=== PATIENT | female | born 1970 | race Caucasian/White ===

== ENCOUNTER 2018-08-15 10:12 | Emergency (ER) | payer SELFPAY ==
[2018-08-15 10:13] VITALS: BP 124/88; PULSE 92; RESP 18; TEMP 36.2; O2SAT 97; BMI 35.1
--- NOTE | 2018-08-15 10:31 | CT_ITS ---
STUDY: CT ABDOMEN AND PELVIS WITH CONTRAST REASON FOR EXAM: Female, 48 years old. Diffuse abdominal pain RADIATION DOSAGE (If Supplied By Facility): CTDIvol = ( 15.41 ) mGy, DLP = ( 1268.82 ) mGycm TECHNIQUE: Transaxial images were obtained from the dome of the diaphragm to the symphysis pubis with oral contrast. 100 ml of Isovue 300 contrast was administered. Sagittal and coronal images were reconstructed. Individualized dose optimization techniques were used for this CT. COMPARISON: None. FINDINGS: The visualized lung bases are clear. The visualized portions of the heart and pericardium are within normal limits. The patient is status post cholecystectomy. The liver is within normal limits. There are no suspicious hepatic lesions. The spleen is normal in size. The pancreas is within normal limits. The adrenal glands are within normal limits. There are no renal or ureteral stones. There is no hydronephrosis. There are no focal renal lesions. Normal visualized stomach. There is no bowel obstruction or inflammation. The appendix is visualized and appears normal. The aorta is normal in caliber. There is no abdominal or pelvic free air, free fluid, fluid collection or lymphadenopathy. There are no destructive osseous lesions. CT/Abdomen/Pelvis WITH Contrast IMPRESSION: No acute abdominal or pelvic pathology. Electronically Signed: Gustavo Partida, at 12:57 EST Tel , Service support ,
[2018-08-15] MEDS: 0.9% Normal Saline 1,000 ML 999 ML IV ×2 (10:50)
[2018-08-15] MEDS: proMETHazine 25 MG/ML Syringe 12.5 MG IV (10:50)
[2018-08-15 11:03] LABS: Absolute Neutrophil Count 4.4 X10^3/uL (2.0-7.7); Basophil# 0.01 X10^3/uL; Basophil% 0.2 % (0-1); Eosinophil# 0.04 X10^3/uL; Eosinophils% 0.6 % (0-5); Hematocrit 40.6 % (37-47); Lymphocyte % 21.6 % (19-41); Mean Corp Hgb Conc 34.5 g/gl (32-36); Mean Corpuscular Hgb 31.9 pg (27.0-32.0); Mean Corpuscular Volume 92.5 fL (81-99); Monocyte# 0.65 X10^3/uL; Neutrophil # 4.36 X10^3/uL (2.7-7.7); Neutrophil % 67.3 % (47-70); POSITIVE COUNT NO; POSITIVE DIFFERENTIAL NO; POSITIVE MORPHOLOGY NO; Platelet Count 234 K/mm3 (150-450); RBC Distribution Width CV 12.5 % (11.6-14.6); RBC Distribution Width SD 41.9 fl (35.1-43.9); Red Blood Count 4.39 M/mm3 (4.2-5.4); White Blood Count 6.5 K/mm3 (4.4-11.0)
[2018-08-15 11:24] LABS: ALB/GLOB Ratio 0.9 RATIO (0.9-2.4); AST(SGOT) 36 U/L (15-37); Alanine Aminotransfer ALT/SGPT 41 U/L (13-56); Albumin, Serum 3.6 g/dL (3.2-5.0); Alkaline Phosphatase 76 U/L (45-117); Anion Gap 8 (5-15); BUN 17 mg/dL (7-18); Calcium,Total 8.4 mg/dL (8.5-10.1); Chloride 107 mmol/L (98-107); Creatinine, Serum 0.85 mg/dL (0.55-1.02); EST Glomerular Filtration Rate 76 mL/min (>60); Est Glom Filt Rate - Afr Amer 92 mL/min (>60); Estimated Creatinine Clearance 72.04 ml/min; Glucose 96 mg/dL (74-106); Lipase 117 U/L (73-393); Potassium 3.6 mmol/L (3.5-5.1); Protein, Total 7.6 g/dL (6.4-8.2); Sodium Level 138 mmol/L (136-145)
[2018-08-15 12:32] VITALS: BP 132/76; PULSE 69; RESP 14; O2SAT 100
[2018-08-15 12:57] LABS: Bacteria 0 SEEN /hpf (None Seen); Mucous, Urine 0 SEEN /hpf (<or=2+); Red Blood Cells-Urine 0 SEEN /hpf (0-5); White Blood Cells 0 SEEN /hpf (0-5)
[2018-08-15 12:58] VITALS: BP 136/77; PULSE 66; RESP 14; O2SAT 100
[2018-08-15 13:26] LABS: Color, Urine Yellow (Yellow); Glucose, Dipstick Normal (Normal); Ketone-Dipstick Negative (Negative); Leukocyte Esterase-Dipstick Negative /ul (Negative); Nitrite-Dipstick Negative (Negative); Occult Blood-Urine 25 /ul (Negative); Protein-Dipstick Negative (Negative); Urine Bilirubin Dipstick Negative (Negative); Urine Clarity Clear (Clear); Urine Urobilinogen Normal (Normal); Urine pH 6.5 (5.0 - 8.0)
[2018-08-15 13:40] LABS: Squamous Epithelial Cells - UA 0-5 SEEN /hpf (5-10)
--- NOTE | 2018-08-15 14:07 | ED.DCSUM_ITS ---
- ER Visit Summary Date of Service: 08/15/18 Chief Complaint: Nausea and vomiting History of Present Illness: The patient is a 48 F who presents with 1 week of nausea. Symptoms began on Friday with a headache and nausea. Headache is improved. Friday through today she has had a lot of vomiting. She also notes some diarrhea. She notes her urine is dark. She states that she is severely nauseated. Physical Examination: Afebrile vital signs are stable Gen: Well-nourished well-developed Head: Normocephalic atraumatic Eyes: Perrl EOMI ENT: TMs clear no rhinorrhea moist mucous membranes Neck: Supple no lymphadenopathy no JVD nontender CVS: Regular rate rhythm no murmurs normal S1-S2 Respiratory: No distress clear to auscultation bilaterally chest nontender Abdomen: Soft mild tenderness to palpation. Without guarding or rebound nondistended normal bowel sounds no masses Back: Nontender Extremity: Nontender no edema Skin: Normal color no rash Neuro: alert orientated ?3 CN II-XII intact normal strength sensation reflexes gait cerebellar Psych: Normal affect normal mood Test Results: CBC CMP lipase normal urinalysis normal CT the abdomen pelvis showed no acute findings Emergency Department Course and Treatment: Patient received IV fluids and Phenergan and her symptoms are improved. I will prescribe some Phenergan instruct her on rest follow-up with primary care return if worsening or concerns Impression: 1. Gastroenteritis This note was generated with [employer] dictation software. It may contain incorrect words, spelling, and punctuation that were not noted in review of the chart prior to signing ED Disposition - Plan for ED Patient: Disposition: Home or Assisted Living Chief Complaint: Abd Pain Instructions: ED Gastroenteritis Viral Prescriptions: proMETHazine tablet [Phenergan] 25 mg PO Q6H PRN PRN #15 tab PRN Reason: Nausea Referrals: Amilcar Tyler MD [Primary Care Provider] - 1 Week if not improving
[2018-08-15 14:11] VITALS: BP 131/76; PULSE 60; RESP 14
== END 2018-08-15 14:22 | disposition home or self-care (01) ==
PROVIDERS: Emergency Provider Emergency Medicine; Family Provider Family Medicine; PCP Family Medicine
DX: K52.9 Noninfective gastroenteritis and colitis, unspecified (principal); I10 Essential (primary) hypertension; G40.909 Epilepsy, unspecified, not intractable, without status epilepticus; F32.9 Major depressive disorder, single episode, unspecified; Z90.49 Acquired absence of other specified parts of digestive tract; Z79.899 Other long term (current) drug therapy; Z72.0 Tobacco use
CPT/HCPCS: 74177; 80053; 81001; 83690; 85025; 96361; 96374; 99283; J7030; Q9967

== ENCOUNTER 2018-09-23 18:05 | Emergency (ER) | payer SELFPAY ==
[2018-09-23 18:07] VITALS: BP 174/102; PULSE 100; RESP 18; TEMP 36.5; O2SAT 96; BMI 37.5
--- NOTE | 2018-09-23 18:36 | RAD_ITS ---
STUDY: X-RAY - RIGHT WRIST REASON FOR EXAM: Female, 48 years old. Pain status post fall. TECHNIQUE: 3 view(s) of the wrist were obtained. COMPARISON: None. FINDINGS: Normal visualized distal radius and ulna. Normal radiocarpal articulation. Normal distal radioulnar articulation. Normal carpal bones. Normal carpal articulations. Normal carpometacarpal articulation of the thumb. Normal second through fifth carpometacarpal articulations. Anchors are noted in the first metacarpal head. Otherwise unremarkable metacarpal bones. The soft tissue structures are unremarkable. RAD/Wrist min 3 Views IMPRESSION: Normal x-ray examination of the wrist. Electronically Signed: Sadie Quezada MD at 19:51 EST Tel , Service support ,
--- NOTE | 2018-09-23 18:36 | RAD_ITS ---
STUDY: X-RAY - RIGHT RADIUS AND ULNA REASON FOR EXAM: Female, 48 years old. Fell and injured right radius and ulna TECHNIQUE: 2 view(s) of the forearm. COMPARISON: None. FINDINGS: There is no demonstrated soft tissue swelling. Comminuted impacted fracture radial head and neck. Normal visualized ulna. RAD/Forearm 2 Views IMPRESSION: Fracture radial head and neck Electronically Signed: Ryan Cote MD at 19:37 EST , Service support ,
--- NOTE | 2018-09-23 18:36 | RAD_ITS ---
STUDY: X-RAY - RIGHT ELBOW REASON FOR EXAM: Female, 48 years old. Fell and injured right elbow TECHNIQUE: 3 view(s) of the elbow. COMPARISON: None. FINDINGS: Comminuted impacted fracture radial head involving 30% of the articular surface. Normal visualized humerus, and ulna. Normal radiocapitellar and ulnotrochlear articulations. The soft tissue structures are unremarkable. Anterior and posterior fat pad sign. RAD/Elbow min 3 Views IMPRESSION: Comminuted impacted radial head fracture and hemarthrosis as above Electronically Signed: Ryan Cote MD at 19:35 EST , Service support ,
--- NOTE | 2018-09-23 18:36 | RAD_ITS ---
STUDY: X-RAY - RIGHT HUMERUS REASON FOR EXAM: Female, 48 years old. Fell and injured right arm TECHNIQUE: 2 view(s) of the humerus. COMPARISON: None. FINDINGS: Normal visualized humerus. There is no demonstrated fracture or osseous destructive process. There is no demonstrated soft tissue abnormality. RAD/Humerus min 2 Views IMPRESSION: Normal x-ray examination of the humerus. Electronically Signed: Ryan Cote MD at 19:33 EST , Service support ,
--- NOTE | 2018-09-23 18:36 | RAD_ITS ---
STUDY: X-RAY - RIGHT SHOULDER REASON FOR EXAM: Female, 48 years old. Fell and injured right shoulder TECHNIQUE: 2 view(s) of the shoulder. COMPARISON: August 19, 2017 FINDINGS: Normal glenohumeral articulation. Normal acromioclavicular joint. Normal acromion. Normal humeral head and visualized proximal humerus. The soft tissue structures are unremarkable. Normal visualized pulmonary apex. RAD/Shoulder min 2 Views IMPRESSION: Normal x-ray examination of the shoulder. Electronically Signed: Ryan Cote MD at 19:18 EST , Service support ,
--- NOTE | 2018-09-23 18:36 | RAD_ITS ---
STUDY: X-RAY - RIGHT HAND REASON FOR EXAM: Female, 48 years old. Fell and injured right hand TECHNIQUE: 3 view(s) of the hand. COMPARISON: None. FINDINGS: 2 metallic anchors in the head of the first metacarpal. Normal radiocarpal articulation. Normal distal radioulnar joint. Normal visualized carpal bones. Normal carpal articulations Normal carpometacarpal articulation of the thumb. Normal second through fifth carpometacarpal joints. Normal metacarpi. Normal metacarpophalangeal joint of the thumb. Normal interphalangeal joint of the thumb. Normal proximal and distal phalanges of the thumb. Normal metacarpophalangeal joints of the second through fifth fingers. Normal proximal and distal interphalangeal joints of the second through fifth fingers. Normal phalanges of the second through fifth fingers. The soft tissue structures are unremarkable. IMPRESSION: Postop changes as above otherwise Normal x-ray examination of the hand. Electronically Signed: Ryan Cote MD at 19:40 EST , Service support , RAD/Hand Min 3 Views
[2018-09-23] MEDS: HYDROmorphone 1 MG/ML Syringe IM (18:42)
--- NOTE | 2018-09-23 20:02 | ED.DCSUM_ITS ---
- ER Visit Summary Date of Service: 09/23/18 Chief Complaint: Right arm injury History of Present Illness: The patient is a 48 F presenting for evaluation secondary to a right arm injury. Patient suffered a mechanical fall where she tripped over a toy box and struck her right arm forcibly. She is reporting pain from her shoulder all the way down to her hand. She denies hitting her head or loss of consciousness. She denies any other injuries. She is not on any sort of anticoagulants. Physical Examination: Primary survey: Airway is patent, breath sounds equal bilateral, central peripheral pulses 2+ and symmetric, GCS 15 out of 15. Vitals within normal limits. Secondary survey: General: Well-nourished well-developed no acute distress Head: Normocephalic atraumatic Eyes: PERRLA, EOMI ENT: Atraumatic Neck: Nontender full range of motion, no step-offs noted Heart: Regular rate and rhythm no murmurs Lungs: Respirations nondistressed, lung sounds clear to auscultation bilaterally, chest nontender, normal chest excursion bilaterally Abdomen: Soft nontender nondistended normal bowel sounds no palpable abdominal masses Back: Nontender no step-offs noted Extremities: Exquisitely tender right upper extremity without localization from the shoulder all the way down to the hand. Normal pulses, normal distal sensation. Limited range of motion secondary to pain. Skin: Normal color no trauma Neuro: Alert and oriented ?4, GCS 15 out of 15, no lateralizing neurological deficits. Test Results: X-rays of the elbow, shoulder, humerus, forearm, wrist, and hand show only evidence of a Kennedy 3 radial head fracture with comminution and impaction Emergency Department Course and Treatment: Patient presented secondary to a fall with an arm injury. Primary and secondary surveys showed only injuries to the right arm. X-rays were obtained which showed a comminuted radial head fracture. Patient was placed in a splint that was fabricated by the ED physician. This was a long-arm with ulnar gutter. There is good capillary refill following splint placement. Patient's pain was treated with Dilaudid and oxycodone in the emergency department. She will be discharged with a course of Percocet. Patient requested follow-up with the [facility] orthopedics. Disposition: Discharge Impression: 1. Right comminuted displaced radial head fracture 2. Long-arm splint fabricated by ED physician This note was generated with [employer] dictation software. It may contain incorrect words, spelling, and punctuation that were not noted in review of the chart prior to signing ED Disposition - Plan for ED Patient: Disposition: Home or Assisted Living Diagnosis: Radial head fracture, closed Instructions: ED Fx Radial Head Prescriptions: Oxycodone HCl/Acetaminophen [Percocet 5/325] 1 tab PO Q6H PRN PRN 5 Days #20 tab PRN Reason: Pain Referrals: Nikolas Crook MD [STAFF PHYSICIAN] - As soon as possible
[2018-09-23] MEDS: oxyCODONE 5 MG Tablet 10 MG PO (20:04)
[2018-09-23 20:06] VITALS: BP 160/94; PULSE 81; RESP 18; O2SAT 97
== END 2018-09-23 20:29 | disposition home or self-care (01) ==
PROVIDERS: Emergency Provider Emergency Medicine; Family Provider Family Medicine; PCP Family Medicine
DX: S52.121A Displaced fracture of head of right radius, initial encounter for closed fracture (principal); W18.09XA Striking against other object with subsequent fall, initial encounter; Y93.9 Activity, unspecified; Y92.9 Unspecified place or not applicable; G40.909 Epilepsy, unspecified, not intractable, without status epilepticus; Z79.899 Other long term (current) drug therapy
CPT/HCPCS: 29105; 29405; 73030; 73060; 73080; 73090; 73110; 73130; 96372; 99283

== ENCOUNTER 2020-10-28 08:37 | Emergency (ER) | payer SELFPAY ==
[2020-10-28 08:38] VITALS: BP 146/91; PULSE 91; RESP 17; TEMP 36.8; O2SAT 100; BMI 35.7
--- NOTE | 2020-10-28 09:07 | ED.VIS.GEN ---
History of Present Illness Chief Complaint: Abd Pain Informant: Patient Narrative: 50-year-old female presenting with epigastric and right upper quadrant pain. Patient states that started this morning. Last meal was last night at about 6 PM. Patient states that she has sharp pain in this area. She has history of cholecystectomy. She has not had fever, chills. She has associated nausea without vomiting. She denies any constipation or diarrhea. - Past Medical History (1) Seizure disorder Status: Chronic Past Medical History - Allergies and Home Meds Allergies/Adverse Reactions: Allergies lactose Allergy (Verified 10/28/20 08:38) Upset Stomach morphine Adverse Reaction (Verified 10/28/20 08:38) NUMBNESS Primary Care Physician: Amilcar Tyler MD [Primary Care Provider] - Prior records reviewed: Yes Surgical History: cholecystectomy Smoking Status: Current every day smoker - Family History Paternal Family History: Reports: No pertinent history Review of Systems General: Denies: Chills, Fever, Sweats ENT: Denies: Rhinorrhea, Sore throat Cardiovascular: Denies: Chest pain, Palpitations Respiratory: Reports: Dyspnea Gastrointestinal: Reports: Abdominal pain, Nausea. Denies: Vomiting, Diarrhea, Constipation, Melena Genitourinary: Denies: Dysuria Musculoskeletal: Denies: Myalgias, Arthralgias Skin: Denies: Rash, Abscess, Abrasions Neurological: Denies: Headache, Weakness, Parasthesia, Numbness Psych: Denies: Depression, Anxiety Physical Exam Vital Signs/Narrative: Vital Signs Temp Pulse Resp BP Pulse Ox 10/28/20 08:38 98.2 F 91 17 146/91 H 100 Inital Vital Signs reviewed: Yes General: Well nourished, No Acute Distress Head: Normocephalic, Atraumatic Eyes: Perrl, EOMI. Negative for: Scleral icterus ENT: Moist mucous membranes, No rhinorrhea Cardiovascular: Regular rate, Regular rhythm Respiratory: No distress, CTA bilaterally Abdomen: Soft, Nondistended, Tender - Tenderness to palpation in the epigastrium and right upper quadrant. Negative Grady sign. Abdomen nonperitoneal. Extremities: Nontender, No edema Skin: Normal color, No rash Neurological: Alert, Oriented x3, Cranial nerves II-XII grossly intact Psychological: Normal affect, Normal Mood Diagnostic/Tx/Re-eval Clinical Impression(s) from Imaging Studies Abdomen/Pelvis CT 10/28/20 09:08 IMPRESSION: 1. Status post cholecystectomy. 2. Small hiatal hernia. 3. No focal acute inflammatory process. Electronically Signed: Noah Carney MD at 10:52 EST Tel , Service support , Laboratory Data 10/28/20 10/28/20 10/28/20 08:51 08:51 11:25 WBC 6.8 RBC 4.39 Hgb 13.9 Hct 42.1 MCV 95.9 MCH 31.7 MCHC 33.0 RDW Std Deviation 42.3 RDW Coeff of Monica 12.0 Plt Count 238 MPV 9.4 Immature Gran % (Auto) 0.400 Neut % (Auto) 60.8 Lymph % (Auto) 27.1 Sanborn % (Auto) 8.4 Eos % (Auto) 2.7 Baso % (Auto) 0.6 Absolute Neuts (auto) 4.1 Absolute Lymphs (auto) 1.83 Nucleated RBC % 0 Sodium 141 Potassium 3.9 Chloride 109 H Carbon Dioxide 26.0 Anion Gap 6 BUN 16 Creatinine 0.93 Estim Creat Clear Calc 64.40 Est GFR (MDRD) Af Amer 82 Est GFR (MDRD) Non-Af 68 BUN/Creatinine Ratio 17.2 Glucose 90 Calcium 8.8 Total Bilirubin 0.40 Direct Bilirubin 0.16 AST 109 H ALT 57 H Alkaline Phosphatase 95 Total Protein 7.0 Albumin 3.9 Globulin 3.1 Albumin/Globulin Ratio 1.3 Urine Color Straw Urine Clarity Clear Urine pH 7.0 Ur Specific Mobile 1.005 Urine Protein Negative Urine Glucose (UA) Normal Urine Ketones Negative Urine Occult Blood Negative Urine Nitrite Negative Urine Bilirubin Negative Urine Urobilinogen 1 H Ur Leukocyte Esterase Negative Urine RBC 0 SEEN Urine WBC 0 SEEN Ur Squamous Epith Cells 0-5 SEEN Urine Bacteria 0 SEEN Urine Mucus 0 SEEN - Medical Decision Making Patient presenting with epigastric and right upper quadrant pain. Patient is status post cholecystectomy. Patient had lab work which was fairly unremarkable. Patient has CT of the abdomen pelvis with IV contrast which shows a small hiatal hernia. Given patient's negative work-up I did offer her GI cocktail which did seem to help her pain. She be discharged home on Pepcid. Impression: 1. Abdominal pain ED Disposition - Plan for ED Patient: Disposition: Home or Assisted Living Instructions: ED PEPTIC ULCER vs GASTRITIS Prescriptions: Famotidine [Pepcid] 20 mg PO BID #28 tab Prescription Printed Referrals: Amilcar Tyler MD [Primary Care Provider] -
--- NOTE | 2020-10-28 09:08 | CT_ITS ---
STUDY: CT ABDOMEN AND PELVIS WITH CONTRAST REASON FOR EXAM: Female, 50 years old. Abdominal Pain RADIATION DOSAGE (If Supplied By Facility): CTDIvol = ( 17.88 ) mGy, DLP = ( 1208.21 ) mGycm TECHNIQUE: Transaxial images were obtained from the dome of the diaphragm to the symphysis pubis without oral contrast. IV 100mL Isovue-300 was administered. Sagittal and coronal images were reconstructed. Individualized dose optimization techniques were used for this CT. COMPARISON: 08/15/2018 FINDINGS: The visualized lung bases are unremarkable. The visualized portions of the heart are within normal limits. Normal liver. There are surgical clips in the gallbladder fossa consistent with a prior cholecystectomy. Normal spleen. Normal pancreas. Normal bilateral adrenal glands. Normal right kidney. Normal left kidney. There is a small hiatal hernia. Normal small intestine. Normal colon. The appendix is visualized and appears normal. There is atherosclerotic calcification of the abdominal aorta, without a demonstrated aneurysm. Normal inferior vena cava. Normal retroperitoneum. Normal urinary bladder. 2.4 cm cystic structure on the left side of the bladder likely representing small adnexal cyst. The uterus is absent consistent with previous hysterectomy. Normal abdominal wall. No demonstrated acute osseous changes. CT/Abdomen/Pelvis W IV Cont ONLY IMPRESSION: 1. Status post cholecystectomy. 2. Small hiatal hernia. 3. No focal acute inflammatory process. Electronically Signed: Noah Carney MD at 10:52 EST Tel , Service support ,
[2020-10-28] MEDS: 0.9% Normal Saline 1,000 ML 1000 ML IV (09:14)
[2020-10-28] MEDS: Ondansetron 4 MG/2 ML Vial IV (09:14)
[2020-10-28 09:15] LABS: Absolute Lymphocyte Count 1.83 X10^3/uL (0.83-4.51); Absolute Neutrophil Count 4.1 X10^3/uL (2.0-7.7); Basophil# 0.04 X10^3/uL; Basophil% 0.6 % (0-1); Eosinophil# 0.18 X10^3/uL; Eosinophils% 2.7 % (0-5); Hematocrit 42.1 % (37-47); Hemoglobin 13.9 g/dL (12.0-15.0); Lymphocyte # 1.83 X10^3/ul (4.0); Lymphocyte % 27.1 % (19-41); Mean Corpuscular Hgb 31.7 pg (27.0-32.0); Mean Corpuscular Volume 95.9 fL (81-99); Mean Platelet Vol. 9.4 fl (6.2-12.0); Monocyte# 0.57 X10^3/uL; Monocyte% 8.4 % (0-10); NRBC Flagged by Analyzer 0 % (0-5); Neutrophil # 4.11 X10^3/uL (2.7-7.7); Neutrophil % 60.8 % (47-70); Platelet Count 238 K/mm3 (150-450); RBC Distribution Width SD 42.3 fl (35.1-43.9); Red Blood Count 4.39 M/mm3 (4.2-5.4); White Blood Count 6.8 K/mm3 (4.4-11.0)
[2020-10-28] MEDS: Ketorolac 15 MG/ML Vial IV (09:26)
[2020-10-28 09:27] LABS: ALB/GLOB Ratio 1.3 RATIO (0.9-2.4); AST(SGOT) 109 U/L (15-37); Alanine Aminotransfer ALT/SGPT 57 U/L (13-56); Albumin, Serum 3.9 g/dL (3.2-5.0); Alkaline Phosphatase 95 U/L (45-117); Anion Gap 6 (5-15); BUN 16 mg/dL (7-18); BUN/Creat Ratio 17.2 RATIO (10-20); Bilirubin, Direct 0.16 mg/dL (0.00-0.30); Calcium,Total 8.8 mg/dL (8.5-10.1); Chloride 109 mmol/L (98-107); Creatinine, Serum 0.93 mg/dL (0.55-1.02); EST Glomerular Filtration Rate 68 mL/min (>60); Est Glom Filt Rate - Afr Amer 82 mL/min (>60); Globulin 3.1 g/dL (2.2-4.2); Glucose 90 mg/dL (74-106); Potassium 3.9 mmol/L (3.5-5.1); Sodium Level 141 mmol/L (136-145)
[2020-10-28 11:36] LABS: Bacteria 0 SEEN /hpf (None Seen); Mucous, Urine 0 SEEN /hpf (<or=2+); Red Blood Cells-Urine 0 SEEN /hpf (0-5); White Blood Cells 0 SEEN /hpf (0-5)
[2020-10-28 11:40] LABS: Color, Urine Straw (Yellow); Glucose, Dipstick Normal (Normal); Ketone-Dipstick Negative (Negative); Leukocyte Esterase-Dipstick Negative /ul (Negative); Nitrite-Dipstick Negative (Negative); Occult Blood-Urine Negative /ul (Negative); Protein-Dipstick Negative (Negative); Specific Gravity, Urine 1.005 (1.002-1.030); Urine Bilirubin Dipstick Negative (Negative); Urine Clarity Clear (Clear); Urine Urobilinogen 1 mg/dl (Normal)
[2020-10-28 11:52] LABS: Squamous Epithelial Cells - UA 0-5 SEEN /hpf (5-10)
[2020-10-28] MEDS: Mag Hydrox/Al Hydrox/Simeth 30 ML UDC PO (11:53)
[2020-10-28 12:30] VITALS: BP 121/88; PULSE 69; RESP 18; O2SAT 100
[2020-10-28 13:02] VITALS: BP 108/74; PULSE 62; RESP 15; O2SAT 98
== END 2020-10-28 13:04 | disposition home or self-care (01) ==
PROVIDERS: Emergency Provider Student in an Organized Health Care Education/Training Program; PCP Family Medicine
DX: R10.13 Epigastric pain (principal); R10.11 Right upper quadrant pain; K44.9 Diaphragmatic hernia without obstruction or gangrene; R11.0 Nausea; G40.909 Epilepsy, unspecified, not intractable, without status epilepticus; F17.200 Nicotine dependence, unspecified, uncomplicated; Z79.899 Other long term (current) drug therapy; Z90.49 Acquired absence of other specified parts of digestive tract
CPT/HCPCS: 74177; 80053; 81001; 82248; 85025; 96361; 96374; 96375; 99283; J7030; Q9967; A4216; J2405